=== PATIENT | male | born 1995 | race Caucasian/White ===

== ENCOUNTER 2016-10-09 17:55 | Emergency (ER) | payer OTHER ==
[2016-10-09] MEDS ORDERED: NS 1,000 ML IV ONE (19:07)
--- NOTE | 2016-10-09 19:16 | CPEKG ---
Heart Rate: 84 RR Interval: 714 P-R Interval: 156 QRSD Interval: 86 QT Interval: 372 QTC Interval: 440 P [place]: 49 QRS [place]: 39 T Wave [place]: 60 EKG Severity - NORMAL ECG - EKG Impression: SINUS RHYTHM Electronically Signed By: Jovon Juarez 09-Oct-2016 19:17:42
[2016-10-09 19:27] LABS: % IMMATURE GRANULYOCYTES 0.2 % (0.0-1.1); ABSOLUTE IMMATURE GRANULOCYTES 0.02 10^3/uL (0.00-0.10); ADD DIFF? NO; ADD MORPH? NO; ADD SCAN? NO; ATYPICAL LYMPHOCYTE FLAG 10 (0-99); FRAGMENT RBC FLAG 0 (0-99); HEMATOCRIT 42.8 % (40.0-51.0); HEMOGLOBIN 15.3 g/dL (13.7-17.5); LEFT SHIFT FLG 0 (0-99); LIPEMIA HEMOLYSIS FLAG 90 (0-99); MEAN CELL HEMOGLOBIN 30.6 pg (27.9-34.1); MEAN CELL HEMOGLOBIN CONCENTR. 35.7 g/dL (32.4-36.7); MEAN CELL VOLUME 85.6 fL (81.5-99.8); MEAN PLATELET VOLUME 9.4 fL (8.7-11.7); PLATELET CLUMPS FLAG 0 (0-99); PLATELET COUNT 260 10^3/uL (150-400); RED CELL DISTRIBUTION WIDTH 12.6 % (11.5-15.2)
[2016-10-09 19:49] LABS: ANION GAP 14 mEq/L (8-16); CALCIUM 9.9 mg/dL (8.5-10.4); CARBON DIOXIDE 23 mEq/l (22-31); CHLORIDE 104 mEq/L (97-110); CREATININE 0.9 mg/dL (0.7-1.3); GLOMERULAR FILTRATION RATE > 60; GLUCOSE 93 mg/dL (70-100); POTASSIUM 3.8 mEq/L (3.5-5.2); SODIUM 141 mEq/L (134-144)
[2016-10-09] MEDS ORDERED: levOFLOXACIN 500 MG/DEXTROSE 100 ML IV ONE (20:07)
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
[2016-10-09] MEDS ORDERED: predniSONE 20 MG TAB PO ONE (20:39)
[2016-10-09] MEDS ORDERED: predniSONE 20 MG TAB ONE (20:39)
[2016-10-09 20:50] VITALS: BP 147/96; PULSE 72; RESP 16; TEMP 98.2; O2SAT 95
== END 2016-10-09 20:50 | disposition home or self-care (01) ==
DX: R55 Syncope and collapse (principal); J20.8 Acute bronchitis due to other specified organisms; J32.9 Chronic sinusitis, unspecified; E86.9 Volume depletion, unspecified

== ENCOUNTER 2016-10-11 13:32 | Emergency (ER) | payer BC, OTHER ==
[2016-10-11 14:09] VITALS: TEMP 97.7
--- NOTE | 2016-10-11 14:14 | CPEKG ---
Heart Rate: 67 RR Interval: 896 P-R Interval: 132 QRSD Interval: 82 QT Interval: 396 QTC Interval: 418 P [place]: 49 QRS [place]: 53 T Wave [place]: 56 EKG Severity - NORMAL ECG - EKG Impression: SINUS RHYTHM Electronically Signed By: Jovon Juarez 11-Oct-2016 14:58:35
[2016-10-11] MEDS ORDERED: NS 1,000 ML IV ONE (15:28)
--- NOTE | 2016-10-11 15:29 | EDPHY ---
H & P Smoking Status: Current every day smoker Time Seen by Provider: 10/11/16 15:28 HPI/ROS: HPI: Mr. Eduardo is a 21 yrs, male who presents with Chief Complaint: lightheaded Location: head Quality: Lightheaded Duration: 3 days Signs and Symptoms: No fever, improving dry cough, no headache, no vertigo, no chest pain, no palpitation, no shortness of breath, denies loss of consciousness to me, denies the room spinning Timing: Intermittent, worse with changing positions from sitting to standing or moving head back and forth Severity: Moderate Context: Patient was seen 3 days ago with a near-syncope episode while at work attributed to exhaustion and mild dehydration. Patient had an unremarkable head CT scan as well as the unremarkable lab. Chest x-ray showed bronchitis and head CT scan showed chronic sinusitis. Patient was discharged on Flonase and prednisone taper; reports compliance. He is on day 3 of the taper. He states that his cough and congestion have significantly improved. He reports that he is drinking 6-8 glasses of water per day per instruction. Patient reports that he actually was starting to feel better the last 2 days but this morning he woke up feeling dizzy when he got out of bed. Patient has not been taking Sudafed as advised last ER visit. Patient has a whole week off of work. Modifying Factors: Prednisone Comment: ROS: Eyes: No blurred vision Respiratory: No shortness of breath, no cough Cardiovascular: No chest pain Gastrointestinal: No nausea, no vomiting no diarrhea Genitourinary: No dysuria Extremities: No myalgias Neurologic: No weakness, no numbness Skin: No rashes Hematologic: No bruising, no bleeding MEDICAL/SURGICAL HISTORY: Generally healthy. 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 (Mer Zuluaga) Physical Exam: CONSTITUTIONAL: young adult white male, awake and alert, no obvious distress HEENT: Atraumatic and normocephalic, PERRL, EOMI. Tympanic membranes clear. . Oropharynx clear, no exudate and moist pink mucosa. Airway patent. No lymphadenopathy. No meningismus. Cardiovascular: Normal S1/S2, regular rate, regular rhythm, without murmur rub or gallop. PULMONARY/CHEST: Symmetrical and nontender. Clear to auscultation bilaterally Good air movement. No accessory muscle usage. ABDOMEN: Soft, nondistended, nontender, no rebound, no guarding, no peritoneal signs, no masses or organomegaly. No CVAT. EXTREMITIES: 2/2 pulses, no deformities, no clubbing, no cyanosis or edema. NEUROLOGICAL: no focal neuro deficits. GCS 15. dizziness reproduced with Ozan- Hallpike test SKIN: Warm and dry, no erythema. no rash. Good capillary refill. (Mer Zuluaga) Constitutional: Initial Vital Signs Temperature (C) 36.5 C 10/11/16 13:36 Heart Rate 79 10/11/16 13:36 Respiratory Rate 18 10/11/16 13:36 Blood Pressure 120/79 10/11/16 13:36 O2 Sat (%) 96 10/11/16 13:36 O2 Delivery Mode Room Air Allergies/Adverse Reactions: No Known Allergies Allergy (Verified 10/11/16 13:33) Home Medications: Medication Instructions Recorded Fluticasone Nasal [Flonase Nasal 2 sprays NASAL DAILY #1 mdi 10/09/16 [place] (RX)] predniSONE [predniSONE TAPER] 10 mg PO DAILY 6 Days 10/09/16 Medical Decision Making - Diagnostics EKG Interpretation: 12 lead EKG: Indication: dizziness Rhythm: Normal sinus rhythm [place]: Normal Intervals: Normal QRS: Normal ST segments: Normal INTERPRETATION: Normal EKG The 12 lead EKG was interpreted by myself. 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 (Mer Zuluaga) Differential Diagnosis: Dizziness including but not limited to peripheral and central causes of vertigo , orthostatic causes including dehydration, and blood loss. (Mer Zuluaga) Other Provider: PHYSICIAN DOCUMENTATION: The patient was evaluated and managed by the Physician Brick Maker and myself. I have reviewed the chart and agree with the findings and plan of care as documented. In addition, I examined the patient myself at 1530. History confirmed as patient feels dizzy but really only when getting up to standing from a sitting or prone or supine position. Does have more of a sense of movement but not necessarily off balance, no syncope. Physical findings as follows: Regular rate rhythm without murmur. Fluent speech. Trial of treatment plan for benign positional vertigo. I think malignant dysrhythmia or vertebral dissection or cerebellar dysfunction unlikely. I am the secondary supervising physician. (Jovon Juarez) - Data Points Laboratory Results: Laboratory Results 10/11/16 15:40 10/11/16 15:40 10/11/16 10/11/16 15:40 15:40 WBC 9.89 10^3/uL H 10^3/uL (3.80-9.50) RBC 4.93 10^6/uL 10^6/uL (4.40-6.38) Hgb 15.1 g/dL g/dL (13.7-17.5) Hct 43.3 % % (40.0-51.0) MCV 87.8 fL fL (81.5-99.8) MCH 30.6 pg pg (27.9-34.1) MCHC 34.9 g/dL g/dL (32.4-36.7) RDW 12.7 % % (11.5-15.2) Plt Count 250 10^3/uL 10^3/uL (150-400) MPV 9.6 fL fL (8.7-11.7) Neut % (Auto) 71.1 % % (39.3-74.2) Lymph % (Auto) 18.7 % % (15.0-45.0) [place] % (Auto) 9.7 % % (4.5-13.0) Eos % (Auto) 0.2 % L % (0.6-7.6) Baso % (Auto) 0.1 % L % (0.3-1.7) Nucleat RBC Rel Count 0.0 % % (0.0-0.2) Absolute Neuts (auto) 7.03 10^3/uL H 10^3/uL (1.70-6.50) Absolute Lymphs (auto) 1.85 10^3/uL 10^3/uL (1.00-3.00) Absolute Monos (auto) 0.96 10^3/uL H 10^3/uL (0.30-0.80) Absolute Eos (auto) 0.02 10^3/uL L 10^3/uL (0.03-0.40) Absolute Basos (auto) 0.01 10^3/uL L 10^3/uL (0.02-0.10) Absolute Nucleated RBC 0.00 10^3/uL 10^3/uL (0-0.01) Immature Gran % 0.2 % % (0.0-1.1) Immature Gran # 0.02 10^3/uL 10^3/uL (0.00-0.10) Sodium 144 mEq/L mEq/L (134-144) Potassium 3.9 mEq/L mEq/L (3.5-5.2) Chloride 107 mEq/L mEq/L (97-110) Carbon Dioxide 25 mEq/l mEq/l (22-31) Anion Gap 12 mEq/L mEq/L (8-16) BUN 8 mg/dL mg/dL (7-23) Creatinine 0.8 mg/dL mg/dL (0.7-1.3) Estimated GFR > 60 Glucose 95 mg/dL mg/dL (70-100) Calcium 9.5 mg/dL mg/dL (8.5-10.4) Medications Given: Discontinued Medications Sodium Chloride (Ns) 1,000 mls @ 0 mls/hr IV EDNOW ONE; Wide Open PRN Reason: Protocol Stop: 10/11/16 15:29 Last Admin: 10/11/16 15:44 Dose: 1,000 mls Sodium Chloride (Ns) 2,000 mls @ 0 mls/hr IV EDNOW ONE; Wide Open PRN Reason: Protocol Stop: 10/11/16 15:44 Last Admin: 10/11/16 16:19 Dose: 1,000 mls Meclizine HCl (Meclizine Hcl) 25 mg PO EDNOW ONE Stop: 10/11/16 16:44 Last Admin: 10/11/16 16:47 Dose: 25 mg Departure - Departure Disposition: Home, Routine, Self-Care Clinical Impression: Sinus disease, Dizziness Eustachian tube dysfunction Qualifiers: Laterality: bilateral Qualified Code(s): H69.83 - Other specified disorders of Eustachian tube, bilateral Clinical Impression: (Ruled Out): BPPV (benign paroxysmal positional vertigo) Condition: Good Instructions: Sinusitis (ED), Dizziness (ED) Additional Instructions: Take Sudafed 1 tab every 6-8 hours for congestion. Continue to take steroid taper until complete. Continue to use Flonase daily. Follow-up with ear nose and throat. Change positions slowly. Referrals: Ramesh Lee MD [Medical Doctor] - 2-3 days, call for appt. [facility],. [Clinic] - 1-2 days without fail
[2016-10-11] MEDS ORDERED: NS 2,000 ML IV ONE (15:43)
[2016-10-11 15:56] LABS: % IMMATURE GRANULYOCYTES 0.2 % (0.0-1.1); ABSOLUTE IMMATURE GRANULOCYTES 0.02 10^3/uL (0.00-0.10); ADD DIFF? NO; ADD MORPH? NO; ADD SCAN? NO; ATYPICAL LYMPHOCYTE FLAG 10 (0-99); FRAGMENT RBC FLAG 0 (0-99); HEMATOCRIT 43.3 % (40.0-51.0); HEMOGLOBIN 15.1 g/dL (13.7-17.5); LEFT SHIFT FLG 0 (0-99); LIPEMIA HEMOLYSIS FLAG 90 (0-99); MEAN CELL HEMOGLOBIN 30.6 pg (27.9-34.1); MEAN CELL HEMOGLOBIN CONCENTR. 34.9 g/dL (32.4-36.7); MEAN CELL VOLUME 87.8 fL (81.5-99.8); MEAN PLATELET VOLUME 9.6 fL (8.7-11.7); PLATELET CLUMPS FLAG 0 (0-99); PLATELET COUNT 250 10^3/uL (150-400); RED BLOOD CELL COUNT 4.93 10^6/uL (4.40-6.38); RED CELL DISTRIBUTION WIDTH 12.7 % (11.5-15.2)
[2016-10-11 16:08] LABS: ANION GAP 12 mEq/L (8-16); CALCIUM 9.5 mg/dL (8.5-10.4); CARBON DIOXIDE 25 mEq/l (22-31); CHLORIDE 107 mEq/L (97-110); CREATININE 0.8 mg/dL (0.7-1.3); GLOMERULAR FILTRATION RATE > 60; GLUCOSE 95 mg/dL (70-100); POTASSIUM 3.9 mEq/L (3.5-5.2); SODIUM 144 mEq/L (134-144)
[2016-10-11] MEDS ORDERED: MECLIZINE HCL 25 MG TAB PO ONE (16:43)
[2016-10-11 17:49] VITALS: BP 126/80; PULSE 67; RESP 16; O2SAT 94
== END 2016-10-11 17:44 | disposition home or self-care (01) ==
DX: R42 Dizziness and giddiness (principal); H69.83 Other specified disorders of Eustachian tube, bilateral; J32.9 Chronic sinusitis, unspecified; F17.200 Nicotine dependence, unspecified, uncomplicated; E86.9 Volume depletion, unspecified

== ENCOUNTER 2017-01-05 18:45 | Emergency (ER) | payer BC ==
[2017-01-05 18:55] VITALS: RESP 16
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
[2017-01-05 20:13] VITALS: BP 133/88; PULSE 84; TEMP 98.2; O2SAT 94
== END 2017-01-05 20:10 | disposition home or self-care (01) ==
DX: S62.91XA Unspecified fracture of right hand, initial encounter for closed fracture (principal); F17.200 Nicotine dependence, unspecified, uncomplicated; Y04.0XXA Assault by unarmed brawl or fight, initial encounter

== ENCOUNTER 2017-10-23 19:59 | Emergency (ER) | payer BC ==
[2017-10-23] MEDS ORDERED: IBUPROFEN 600 MG TAB PO ONE (20:29)
[2017-10-23] MEDS ORDERED: OXYCODONE/APAP 5/325 TAB PO ONE (20:30)
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
[2017-10-23] MEDS ORDERED: HYDROCOD/APAP 5/325 PREPACK#6 BTL TAKEHOME ONE (22:15)
[2017-10-23 22:20] VITALS: BP 135/84
== END 2017-10-23 22:20 | disposition home or self-care (01) ==
DX: S13.9XXA Sprain of joints and ligaments of unspecified parts of neck, initial encounter (principal); S09.90XA Unspecified injury of head, initial encounter; S83.8X2A Sprain of other specified parts of left knee, initial encounter; V49.59XA Passenger injured in collision with other motor vehicles in traffic accident, initial encounter; Y92.410 Unspecified street and highway as the place of occurrence of the external cause
CPT/HCPCS: L1830